=== PATIENT | male | born 1965 | race African-American/Black ===

== ENCOUNTER 2016-04-27 12:26 | Emergency (ER) | payer OTHER, MEDICAID ==
[~2016-04-27] VITALS: Ht 177.8 cm; Wt 105.0 kg
[2016-04-27] MEDS ORDERED: ACETAMINOPHEN 325 MG TABLET PO ONE (14:30)
[2016-04-27 15:10] VITALS: BP 118/77
== END 2016-04-27 15:52 | disposition home or self-care (01) ==
LOC: EMS 12:27
DX: J02.9 Acute pharyngitis, unspecified (principal); R51 Headache
CPT/HCPCS: 99283

== ENCOUNTER 2016-09-15 18:15 | Emergency (ER) | payer MEDICAID, OTHER ==
[~2016-09-15] VITALS: Ht 177.8 cm; Wt 100.0 kg
[2016-09-15 18:41] VITALS: BP 127/80
[2016-09-15] MEDS ORDERED: ACETAMINOPHEN 325 MG TABLET PO ONE (19:15)
== END 2016-09-15 20:03 | disposition home or self-care (01) ==
LOC: EMS 18:16
DX: J02.9 Acute pharyngitis, unspecified (principal); J06.9 Acute upper respiratory infection, unspecified; J45.909 Unspecified asthma, uncomplicated; Z88.6 Allergy status to analgesic agent
CPT/HCPCS: 99283

== ENCOUNTER 2018-07-26 01:11 | Emergency (ER) | payer MEDICAID ==
[~2018-07-26] VITALS: Ht 177.8 cm; Wt 105.9 kg
[2018-07-26 01:14] VITALS: BP 135/83
[2018-07-26] MEDS ORDERED: APRE1TAB2 PO (01:32)
[2018-07-26] MEDS ORDERED: ALBU8HFA PUFF (01:32)
[2018-07-26] MEDS ORDERED: A20IH1 IH (01:32)
== END 2018-07-26 01:50 | disposition left against medical advice (07) ==
LOC: EMS 01:11
DX: J45.909 Unspecified asthma, uncomplicated (principal); Z53.21 Procedure and treatment not carried out due to patient leaving prior to being seen by health care provider